=== PATIENT | female | born 1940 | race Caucasian/White ===

== ENCOUNTER 2016-02-17 14:18 | Emergency (ER) | payer MEDICARE ==
[~2016-02-17] VITALS: Ht 165.1 cm; Wt 78.3 kg
[~2016-02-17 14:18] MED LIST changes: -AMBI10TA PO; -HYDR-3534 PO; -SIMV40TA PO
[2016-02-17 14:25] VITALS: BP 189/86; PULSE 68; RESP 16; TEMP 97.9; O2SAT 97
[2016-02-17] MEDS ORDERED: SIMV40TA PO (14:37)
[2016-02-17] MEDS ORDERED: AMBI10TA PO (14:37)
[2016-02-17] MEDS ORDERED: ORPHENADRINE INJ 60 MG/2 ML AMP IM ONE (14:45)
--- NOTE | 2016-02-17 14:45 | PD ---
HPI Chief Complaint: Back/ Neck Pain or Injury Time Seen by Provider: 14:39 Travel History International Travel<30 days: No Contact w/Intl Traveler<30days: No Traveled to known affect area: No History of Present Illness HPI Patient is a 76-year-old female presenting with bilateral low back pain, right greater than left. She states at 6 AM yesterday morning she went to sit on a short stool approximately 1.5 feet off the ground when it slid out from underneath her and she fell straight onto her buttocks. She's had pain in the low back since. Ice and heat have helped. It is worse with movement. She thinks standing and sitting does seem to alleviate and lying makes it worse. The pain does not radiate. She denies weakness or paresthesia, or bladder dysfunction or saddle anesthesia. She denies abdominal pain. She did not hit her head or lose consciousness. She denies history of osteoporosis, back surgery or chronic back pain. PFSH Past Medical History Arthritis: No Asthma: Yes Autoimmune Disease: No Blood Disorders: No Anxiety: No Depression: No Heart Rhythm Problems: No Cancer: No Cardiovascular Problems: No High Cholesterol: Yes Chemotherapy: No Chest Pain: No Congestive Heart Failure: No COPD: No Cerebrovascular Accident: No Diabetes: No Diminished Hearing: No Endocrine: No Gastrointestinal Disorders: No GERD: No Glaucoma: No Genitourinary: No Headaches: No Hepatitis: No Hiatal Hernia: No Heparin Induced Thrombocytopen: No Hypertension: No Immune Disorder: No Implanted Vascular Access Dvce: No Kidney Stones: No Medical other: No Musculoskeletal: No Neurologic: No Psychiatric: No Reproductive: No Respiratory: Yes (asthma) Migraines: No Myocardial Infarction: No Radiation Therapy: No Renal Failure: No Seizures: No Sickle Cell Disease: No Sleep Apnea: No Thyroid Disease: No Ulcer: No Tetanus Vaccination: Unknown ?: Not Past Surgical History Abdominal Surgery: No AICD: No Appendectomy: No Arteriovenous Shunt: No Cardiac Surgery: No Cholecystectomy: No Ear Surgery: No Endocrine Surgery: No Eye Surgery: No Genitourinary Surgery: No Gynecologic Surgery: Yes ( CONE BIOSPY) Insulin Pump: No Joint Replacement: No Neurologic Surgery: No Oral Surgery: No Pacemaker: No Thoracic Surgery: No Other Surgery: Yes Social History Alcohol Use: Yes (OCCASIONALLY) Tobacco Use: No Substance Use: No Allergies-Medications (Allergen,Severity, Reaction): Coded Allergies: Augmentin (Verified Adverse Reaction, Severe, Nausea/Vomiting, 02/17/16) Reported Meds & Prescriptions Reported Meds & Active Scripts Active Lortab (Hydrocodone-Acetaminophen) 7.5-325 Mg Tab 1 Tab PO Q6H PRN Reported Ambien (Zolpidem Tartrate) 10 Mg Tab 10 Mg PO HS PRN Simvastatin 40 Mg Tab 40 Mg PO HS Review of Systems Except as stated in HPI: all other systems reviewed are Neg Physical Exam Narrative GENERAL: Well-developed and well-nourished adult female in no acute distress. SKIN: Warm and dry. Good turgor without tenting. HEAD: Normocephalic and atraumatic. EYES: PERRL bilaterally, 5mm. EOMI bilaterally. No injection or icterus present. No proptosis. Lids without edema or erythema. NECK: Supple, no midline tenderness, crepitus or step-offs. Trachea midline, no JVD. No cervical or facial lymphadenopathy. CARDIOVASCULAR: Regular rate and rhythm without murmurs, rubs, clicks or gallops. Dorsalis pedis and posterior tibial pulses 2+ bilaterally. No pedal edema. RESPIRATORY: Clear to auscultation bilaterally with symmetrical rise and fall, no distress or use of accessory muscles. GASTROINTESTINAL: Non-tender, non-distended. Normal bowel sounds all 4 quadrants. No masses or organomegaly present. MUSCULOSKELETAL: Evaluation of the mid to low back reveals no edema or discoloration. There is no thoracic, lumbar or sacral/coccygeal midline tenderness, crepitus or step-offs. Tenderness to palpation of the bilateral sacroiliac joints and low lumbar paraspinous musculature. Negative bilateral modified straight leg raise. No pain with pelvic rocking or pelvic instability. No pain with palpation of the bilateral inguinal regions. No leg length discrepancy or rotation of the hips. Antalgic gait. Patient freely moving all four extremities spontaneously. Extremities without clubbing, cyanosis, or edema. No obvious deformities. NEUROLOGIC: CN II-XII grossly intact. Awake and alert. Sensation intact L1-S2 bilaterally. Strength 5/5 in hip flexion, hip extension, knee flexion, knee extension, plantar flexion, dorsiflexion, and great toe flexion and extension bilaterally. Bilateral patellar and Achilles DTRs 2+. Downgoing Babinskis bilaterally. Normal speech. PSYCHIATRIC: Appropriate mood and affect; insight and judgment normal. *Patient was examined in the presence of a nurse, Cristina, at all times* Data Data Last Documented VS Vital Signs Date Time Temp Pulse Resp B/P Pulse Ox O2 Delivery O2 Flow Rate FiO2 02/17/16 16:50 86 16 174/95 95 02/17/16 14:25 97.9 Orders Spine, Lumbar Comp W/Obliq (02/17/16 ) Orphenadrine Inj (Norflex Inj) (02/17/16 14:45) Ct Lumb Spine W/O Contrast (02/17/16 ) Pelvis, Ap Only (Routine) (02/17/16 ) Morphine Inj (Morphine Inj) (02/17/16 16:30) Splint Or Brace Apply/Monitor (02/17/16 17:53) MDM Medical Decision Making Medical Screen Exam Complete: Yes Emergency Medical Condition: Yes Interpretation(s) Last 24 hours Impressions Pelvis X-Ray 02/17/16 0000 Signed Impressions: Service Date/Time: Wednesday, February 17, 2016 16:02 - CONCLUSION: Intact pelvis Gerardo Adams MD Lumbar Spine X-Ray 02/17/16 0000 Signed Impressions: Service Date/Time: Wednesday, February 17, 2016 14:43 - CONCLUSION: Osteopenia or process with extensive degenerative changes. Concavity superior vertebral endplate of L1 indeterminate as to chronicity. Gerardo Adams MD Lumbar Spine CT 02/17/16 0000 Signed Impressions: Service Date/Time: Wednesday, February 17, 2016 16:58 - CONCLUSION: Acute compression fracture superior vertebral endplate of L1. No evidence of spinal stenosis associated with this. Multilevel degenerative changes L2-S1 as described above Gerardo Adams MD Differential Diagnosis Low back strain versus SI dysfunction versus vertebral fracture versus compression deformity Narrative Course Patient is a 76-year-old female who denies a history of osteoporosis presenting with bilateral lobe back pain after a stool that was 1.5 feet tall slipped out from behind her and she landed on her buttocks. The pain in the back since with no acute worsening. Somewhat relieved by ice and heat. No midline tenderness but there is tenderness on the bilateral sacroiliac joints. She has no "red flag "symptoms and is neurovascularly intact. Ordered lumbosacral series and patient was given Norflex. X-ray shows concavity at the superior endplate of L1 with undetermined chronicity. Cannot rule out compression fracture. Significant degenerative changes diffusely and osteopenia. Discussed with the patient and recommended CT area patient mentioned her hips as well as bilateral aching in the bilateral soft tissue of the hips so a AP pelvis was ordered as well as the CT lumbar spine. She does report improvement in her pain with the Norflex. AP pelvis negative for acute process. CT lumbar spine confirms L1 compression fracture which is minimal without stenosis. As patient has no radicular symptoms and is neurovascularly intact this does not require additional imaging or emergent neurosurgery consult. Patient was given order for a TLSO brace which she has to go to the main campus to obtain as well as reduction for Lortab. I reviewed this with Dr. Andrade who is in agreement with the assessment and plan and patient should follow-up with neurosurgery this week.See discharge paperwork for further instructions. The plan was discussed with the patient who acknowledged their understanding and agreement. Reinforced the follow-up with primary care is critically important. Patient instructed on emergent conditions that should prompt return to ED. Diagnosis Primary Impression: Lumbar compression fracture Qualified Code: S32.000A - Lumbar compression fracture, closed, initial encounter Additional Impression: Low back strain Qualified Code: S39.012A - Low back strain, initial encounter Referrals: Osiel Machado MD Patient Instructions: General Instructions, Low Back Strain (ED), Narcotic given in the ED, Vertebral Compression Fracture (ED) Additional Instructions: Take medications as prescribed Your medications may cause drowsiness. Do not take with alcohol or sedatives. Do not operate a motor vehicle or heavy machinery while on medication. Apply ice every 1 to 2 hours as needed for pain Obtained TLSO splint as discussed in use to help with pain and to avoid movement and worsening of injuries Do not get splint wet Avoid maneuvers that aggravate pain Elevate when at rest Follow-up with neurosurgeon in 2-3 days Return to the ED for any acute worsening of symptoms Med/Other Pt SpecificInfo: Prescription(s) given Scripts Hydrocodone-Acetaminophen (Lortab)7.5-325 Mg Tab1 Tab PO Q6H PRN (PAIN) #15 TAB Ref 0 Prov:Calli Andrade MD 02/17/16 Disposition: 01 DISCHARGE HOME Condition: Stable Nick Friend III Feb 17, 2016 14:45
--- NOTE | 2016-02-17 15:37 | RADHPO ---
EXAM DATE/TIME: 02/17/2016 14:43 [facility] COMPARISON: No previous studies available for comparison. INDICATIONS : Lower back pain post fall today. MEDICAL HISTORY : None. SURGICAL HISTORY : None. ENCOUNTER: Initial ACUITY: 1 day PAIN SCORE: 10/10 LOCATION: Bilateral lumbar spine. FINDINGS: Vascular calcifications noted in the aorta. Bony structures are osteopenic with de generative changes includes degenerative disc disease narrowing L2-S1 and anterior marginal spurring. Facet arthritic changes are noted at these levels. There is a cavity to the superior vertebral endpl ate of L1 indeterminate chronicity as to compression fracture. CONCLUSION: Osteopenia or process with extensive degenerative changes. Concavity superior vertebr al endplate of L1 indeterminate as to chronicity. Gerardo Adams MD on February 17, 2016 at 15:34 Board Certified Radiologist. This report was verified electronically.
--- NOTE | 2016-02-17 16:17 | RADHPO ---
EXAM DATE/TIME: 02/17/2016 16:02 [facility] COMPARISON: SPINE LUMBAR COMPLETE W/OBLIQ, February 17, 2016, 14:43. INDICATIONS : Pelvis pain post fall today. MEDICAL HISTORY : None. SURGICAL HISTORY : None. ENCOUNTER: Initial ACUITY: 1 day PAIN SCORE: 10/10 LOCATION: Bilateral pelvis. FINDINGS: A single frontal view of the pelvis demonstrates no evidence of fracture. The bony pelvic ring is in tact. Bony mineralization is normal. The soft tissues are intact. Degenerative changes of lower lum bar spine CONCLUSION: Intact pelvis Gerardo Adams MD on February 17, 2016 at 16:15 Board Certified Radiologist. This report was verified electronically.
[2016-02-17] MEDS ORDERED: MORPHINE SULFATE 4 MG/ML INJ IM ONE (16:30)
[2016-02-17 16:50] VITALS: BP 174/95; PULSE 86; RESP 16; O2SAT 95
--- NOTE | 2016-02-17 17:29 | RADHPO ---
EXAM DATE/TIME: 02/17/2016 16:58 [facility] COMPARISON: SPINE LUMBAR COMPLETE W/OBLIQ, February 17, 2016, 14:43. INDICATIONS : Lower back pain status post fall onto buttocks yesterday. RADIATION DOSE: 40.08 CTDIvol (mGy) MEDICAL HISTORY : None SURGICAL HISTORY : None. ENCOUNTER: Initial ACUITY: 1 day PAIN SCALE: 10/10 LOCATION: Bilateral lower back TECHNIQUE: Volumetric scanning of the lumbar spine was performed. Multiplanar reconstructions in the sagittal, coronal and oblique axial planes were performed. Using automated exposure control and adjustment of the mA and/or kV according to patient size, radiation dose was kept as low as reasonably achievable t o obtain optimal diagnostic quality images. FINDINGS: CT scan confirms the findings of plain film radiography of lumbar spine. Extensive degenerative disc disease is noted L2-S1 all disc spaces narrowed with vacuum signs and circumferential hypertrophic ch anges with osteophyte disc protrusion at L45 and L3-4 facet arthritic changes posterior ligamentous h ypertrophy and localized spinal stenosis at these levels. Multilevel facet arthritic changes are appr eciated. Concavity of the superior vertebral endplate of L1 with mild anterior wedging and subchondral impaction increased density in horizontal fashion as well as intersp ersed areas of cortical disruption indicate this is an acute fracture of L1 superior vertebral endpla te. There is no significant retropulsion of fragments or evidence of spinal stenosis. CONCLUSION: Acute compression fracture superior vertebral endplate of L1. No evidence of spinal stenosis associat ed with this. Multilevel degenerative changes L2-S1 as described a humza Adams MD on February 17, 2016 at 17:25 Board Certified Radiologist. This report was verified electronically.
[2016-02-17] MEDS ORDERED: HYDR-3534 PO (17:41)
[2016-02-17 17:59] VITALS: RESP 14
[2016-02-17 18:11] VITALS: BP 176/91
== END 2016-02-17 18:12 | disposition home or self-care (01) ==
LOC: PHEFT 14:18
DX: S32.019A Unspecified fracture of first lumbar vertebra, initial encounter for closed fracture (principal); S39.012A Strain of muscle, fascia and tendon of lower back, initial encounter; J45.909 Unspecified asthma, uncomplicated; E78.00 Pure hypercholesterolemia, unspecified; W08.XXXA Fall from other furniture, initial encounter
CPT/HCPCS: 72110; 72131; 72170; 96372; 99284; J2270; J2360; L0484; L1050

== ENCOUNTER → 2016-02-17 | Outpatient (CLI) | payer MEDICARE ==
[~2016-02-17] MED LIST: ALPR.25 PO; AMBI10TA PO; HYDR-3534 PO; SIMV40TA PO; ZOCO40TA PO
== END ==
LOC: HORT 18:46
PROVIDERS: ATTEND Emergency Medicine
DX: M48.56XA Collapsed vertebra, not elsewhere classified, lumbar region, initial encounter for fracture (principal)
CPT/HCPCS: L0484; L1050

== ENCOUNTER 2017-02-11 15:32 | Emergency (ER) | payer MEDICARE ==
[~2017-02-11] VITALS: Ht 167.6 cm; Wt 80.0 kg
[~2017-02-11 15:32] MED LIST changes: -ALPR.25 PO; +AMBI10TA PO; +HYDR-3534 PO; +SIMV40TA PO; -ZOCO40TA PO
[2017-02-11 15:39] VITALS: BP 188/88; PULSE 72; RESP 16; TEMP 98.3; O2SAT 98
[2017-02-11] MEDS ORDERED: FLUT1SPR5 EACH NARE (15:54)
[2017-02-11] MEDS ORDERED: LOSA50TA PO (15:54)
[2017-02-11] MEDS ORDERED: ASPI81CH7 CHEW (15:54)
[2017-02-11] MEDS ORDERED: SIMV20TA PO (15:54)
[2017-02-11] MEDS ORDERED: MONT10TA2 PO (15:54)
--- NOTE | 2017-02-11 16:27 | PD ---
HPI Chief Complaint: Hypertension Time Seen by Provider: 16:09 Travel History International Travel<30 days: No Contact w/Intl Traveler<30days: No Traveled to known affect area: No History of Present Illness HPI 77-year-old female presents emergency department for evaluation of elevated blood pressure at home. She has a history of hypertension and has been taking her medications. Recently switched from lisinopril to losartan about 2-3 months ago.. Patient states that she took her blood pressure this morning because she's been under some stress and noticed that it was elevated in the 180 systolic range, she went to her primary care physician seen by the nurse who also stated that her blood pressure was elevated about 140/110, the nurse recommended that she come the emergency department for evaluation. The patient not had any chest pain shortness of breath abdominal pain nausea vomiting diarrhea. She does have a appointment with her primary care physician in the next few days. Symptoms are moderate, associated signs symptoms as above, context as above, started today. PFSH Past Medical History Arthritis: No Asthma: Yes Autoimmune Disease: No Blood Disorders: No Anxiety: No Depression: No Heart Rhythm Problems: No Cancer: No Cardiovascular Problems: Yes (HTN) High Cholesterol: Yes Chemotherapy: No Chest Pain: No Congestive Heart Failure: No COPD: No Cerebrovascular Accident: No Diabetes: No Diminished Hearing: No Endocrine: No Gastrointestinal Disorders: No GERD: No Glaucoma: No Genitourinary: No Headaches: No Hepatitis: No Hiatal Hernia: No Heparin Induced Thrombocytopen: No Hypertension: Yes Immune Disorder: No Implanted Vascular Access Dvce: No Kidney Stones: No Musculoskeletal: No Neurologic: No Psychiatric: No Reproductive: No Respiratory: Yes (asthma) Migraines: No Myocardial Infarction: No Radiation Therapy: No Renal Failure: No Seizures: No Sickle Cell Disease: No Sleep Apnea: No Thyroid Disease: No Ulcer: No Tetanus Vaccination: > 5 Years Influenza Vaccination: No ?: Not Menopausal: Yes Past Surgical History Abdominal Surgery: No AICD: No Appendectomy: No Arteriovenous Shunt: No Cardiac Surgery: No Cholecystectomy: No Ear Surgery: No Endocrine Surgery: No Eye Surgery: No Genitourinary Surgery: No Gynecologic Surgery: Yes ( CONE BIOSPY) Insulin Pump: No Joint Replacement: No Neurologic Surgery: No Oral Surgery: No Pacemaker: No Thoracic Surgery: No Other Surgery: Yes Social History Alcohol Use: Yes (OCCASIONALLY) Tobacco Use: No Substance Use: No Allergies-Medications (Allergen,Severity, Reaction): Coded Allergies: amoxicillin (Unverified Adverse Reaction, Severe, Nausea/Vomiting, 02/11/17) clavulanic acid (Unverified Adverse Reaction, Severe, Nausea/Vomiting, 02/11) Reported Meds & Prescriptions Reported Meds & Active Scripts Active Reported Aspirin Children's (Aspirin) 81 Mg Chew 81 Mg CHEW DAILY Flonase Nasal [place] (Fluticasone Nasal [place]) 50 Mcg/Act [place] 50 Mcg EACH NARE BID Losartan (Losartan Potassium) 50 Mg Tab 50 Mg PO DAILY Simvastatin 20 Mg Tab 20 Mg PO DAILY Singulair (Montelukast Sodium) 10 Mg Tab 10 Mg PO HS Review of Systems Except as stated in HPI: all other systems reviewed are Neg Physical Exam Narrative GENERAL: Well-developed well-nourished in no obvious distress SKIN: Focused skin assessment warm/dry. HEAD: Atraumatic. Normocephalic. EYES: Pupils equal and round. No scleral icterus. No injection or drainage. ENT: No nasal bleeding or discharge. Mucous membranes pink and moist. NECK: Trachea midline. No JVD. CARDIOVASCULAR: Regular rate and rhythm. No murmur appreciated. RESPIRATORY: No accessory muscle use. Clear to auscultation. Breath sounds equal bilaterally. GASTROINTESTINAL: Abdomen soft, non-tender, nondistended. Hepatic and splenic margins not palpable. MUSCULOSKELETAL: No obvious deformities. No clubbing. No cyanosis. No edema. NEUROLOGICAL: Awake and alert. No obvious cranial nerve deficits. Motor grossly within normal limits. Normal speech. PSYCHIATRIC: Appropriate mood and affect; insight and judgment normal. Data Data Last Documented VS Vital Signs Date Time Temp Pulse Resp B/P (MAP) Pulse Ox O2 Delivery O2 Flow Rate FiO2 02/11/17 15:51 Room Air 02/11/17 15:39 98.3 72 16 188/88 (121) 98 Orders Orders Ed Discharge Order (02/11/17 16:27) [facility] Medical Decision Making Medical Screen Exam Complete: Yes Emergency Medical Condition: Yes Differential Diagnosis Asymptomatic elevated blood pressure, hypertensive emergency unlikely, CHF unlikely, Narrative Course Patient roomed in emergency department, recent workups including an echocardiogram according to her which was negative. She has no symptoms toward further workup in the emergency department and is here she admits because her friend was here because he fell and has rib pain. At this time there is no indication to lower her blood pressure emergently and she is encouraged to take her blood pressure keep a record at home and follow-up with her primary care physician as scheduled. At this time she is stable for discharge. Diagnosis Primary Impression: Elevated blood pressure reading Additional Instructions: Take your blood pressure twice/day and write down the readings. Take these readings with you to your primary care physicians. Continue to take your blood pressure medication as prescribed. Disposition: 01 DISCHARGE HOME Condition: Stable Cornell King MD Feb 11, 2017 16:26
== END 2017-02-11 16:38 | disposition home or self-care (01) ==
LOC: PHED 15:32
DX: I10 Essential (primary) hypertension (principal)
CPT/HCPCS: 99282